=== PATIENT | female | born 1955 | race Caucasian/White ===

== ENCOUNTER 2019-11-19 11:14 | Observation (INO) ==
[2019-11-19] MEDS ORDERED: *HR* FentaNYL (PF) 100 MCG/2 ML VIAL IVP ONE (11:38)
[2019-11-19 12:09] LABS: Basophils # 0.1 K/mcL (0.0-0.2); Basophils % 0.7 %; Eosinophils # 0.2 K/mcL (0.0-0.6); Eosinophils % 2.2 %; Hematocrit 39.8 % (35.3-44.9); Hemoglobin 12.5 g/dL (11.5-15.4); Immature Granulocytes % 0.7 % (0-4); Lymphocytes # 1.5 K/mcL (0.6-4.6); Lymphocytes % 15.9 %; Mean Corpuscular HGB Conc 31.4 g/dL (31.6-35.5); Mean Corpuscular Hemoglobin 29.7 pg (28.0-33.3); Mean Corpuscular Volume 94.5 fL (83.0-100.0); Mean Platelet Volume 9.9 fL (9.4-12.4); Monocytes % 10.4 %; Neutrophils # 6.6 K/mcL (1.6-8.9); Platelet Count 315 K/mcL (140-400); Red Blood Count 4.21 M/mcL (3.82-4.97); Segmented Neutrophils % 70.1 %; White Blood Count 9.4 K/mcL (4.3-11.1)
[2019-11-19 12:16] LABS: INR 1.1
[2019-11-19 12:30] LABS: BUN/Creatinine Ratio 22 (6-26); Blood Urea Nitrogen 17 mg/dL (8-23); Carbon Dioxide 26 mEq/L (23-29); Chloride 103 mEq/L (98-107); Glucose 102 mg/dL (70-105); Osmolality,Calculated 286 (280-300); Potassium 3.8 mEq/L (3.5-5.1); Sodium 137 mEq/L (136-145); eGFR For African Americans > 60 (> 60); eGFR For Non-African Americans > 60 (> 60)
[2019-11-19 12:31] LABS: Troponin I < 0.03 ng/mL (< 0.04)
[2019-11-19] MEDS ORDERED: hydrOXYzine pamoate 25 MG CAPSULE PO PRN (13:36)
[2019-11-19] MEDS ORDERED: Naloxone 0.4 MG/ML INJ IVP PRN (13:38)
[2019-11-19] MEDS ORDERED: clonazePAM 0.5 MG TABLET PO SCH ×2 (13:45→21:00)
[2019-11-19 14:32] LABS: Thyroid Stimulating Hormone 2.211 mcIU/mL (0.340-5.600)
[2019-11-19] MEDS ORDERED: Ipratropium/Albuterol Neb 3 ML IH ONE (14:37)
[2019-11-19] MEDS ORDERED: Ipratropium/Albuterol Neb 3 ML IH PRN (14:37)
[2019-11-19] MEDS ORDERED: *HR* Labetalol 20 MG/4 ML SYRINGE IVP PRN (14:38)
[2019-11-19] MEDS ORDERED: *HR* HYDROcodone/Acet 5/325 mg TABLET PO PRN (14:53)
[2019-11-19 16:23] LABS: Albumin 3.6 g/dL (3.5-5.7); Albumin/Globulin Ratio 2.3 (1.1-2.2); Bilirubin,Direct 0.1 mg/dL (0.0-0.2); Bilirubin,Indirect 0.3 mg/dL (0.0-1.0); Bilirubin,Total 0.4 mg/dL (0.3-1.0); Globulin 1.6 g/dL (2.4-3.5); Total Protein 5.2 g/dL (6.4-8.9)
[2019-11-19] MEDS: *HR* Heparin 5,000 UNIT/ML VIAL SQ SCH (17:39)
[2019-11-19] MEDS ORDERED: rOPINIRole 1 MG TABLET PO SCH (21:00)
[2019-11-19] MEDS: carvediloL 25 MG TABLET PO SCH (21:56)
[2019-11-19] MEDS: *HR* OxyCODONE Immed Rel 5 MG TABLET PO PRN (21:56)
[2019-11-20] MEDS ORDERED: *HR* LORazepam 2 MG/ML VIAL IVP ONE ×3 (04:23→10:01)
[2019-11-20] MEDS: *HR* Heparin 5,000 UNIT/ML VIAL SQ SCH (05:25)
[2019-11-20 07:33] VITALS: BP 156/89
[2019-11-20] MEDS: carvediloL 25 MG TABLET PO SCH (08:41)
[2019-11-20] MEDS: *HR* OxyCODONE Immed Rel 5 MG TABLET PO PRN (08:43)
[2019-11-20] MEDS ORDERED: lisinopriL 10 MG TABLET PO SCH (09:00)
[2019-11-20] MEDS ORDERED: lamoTRIgine 100 MG TABLET PO SCH (09:00)
== END 2019-11-20 12:00 | disposition home or self-care (01) ==
LOC: 3NENU 11:14 → EMEROOARM 11:14 → 3NENU 15:09
PROVIDERS: ADMIT Student in an Organized Health Care Education/Training Program; ATTEND Student in an Organized Health Care Education/Training Program

== ENCOUNTER 2019-12-25 12:31 | Observation (INO) ==
[2019-12-25] MEDS ORDERED: Vancomycin 1,500 MG/265 ML IV.SOLN IVPB ONE (13:18)
[2019-12-25 13:52] LABS: Hematocrit 37.7 % (35.3-44.9); Hemoglobin 11.5 g/dL (11.5-15.4); Mean Corpuscular HGB Conc 30.5 g/dL (31.6-35.5); Mean Corpuscular Hemoglobin 28.8 pg (28.0-33.3); Mean Corpuscular Volume 94.3 fL (83.0-100.0); Mean Platelet Volume 8.9 fL (9.4-12.4); Platelet Count 284 K/mcL (140-400); Red Cell Distribution Width 14.5 % (11.5-14.5); White Blood Count 8.2 K/mcL (4.3-11.1)
[2019-12-25 14:09] LABS: BUN/Creatinine Ratio 23 (6-26); Blood Urea Nitrogen 19 mg/dL (8-23); Calcium 8.9 mg/dL (8.6-10.3); Carbon Dioxide 30 mEq/L (23-29); Chloride 103 mEq/L (98-107); Glucose 98 mg/dL (70-105); Osmolality,Calculated 288 (280-300); Potassium 3.6 mEq/L (3.5-5.1); Sodium 138 mEq/L (136-145); eGFR For African Americans > 60 (> 60); eGFR For Non-African Americans > 60 (> 60)
[2019-12-25] MEDS ORDERED: Furosemide 40 MG/4 ML VIAL IVP ONE (16:05)
[2019-12-25] MEDS ORDERED: clonazePAM 0.5 MG TABLET PO PRN (16:08)
[2019-12-25] MEDS ORDERED: *HR* Acetaminophen w/Cod 300-30 mg 1 TAB TABLET PO PRN (16:08)
[2019-12-25] MEDS: carvediloL 25 MG TABLET PO SCH (18:27)
[2019-12-25] MEDS ORDERED: rOPINIRole 1 MG TABLET PO SCH (21:00)
[2019-12-25] MEDS: *HR* Heparin 5,000 UNIT/ML VIAL SQ SCH (21:16)
[2019-12-25] MEDS: hydrOXYzine pamoate 25 MG CAPSULE PO PRN (23:52)
[2019-12-26] MEDS: *HR* Heparin 5,000 UNIT/ML VIAL SQ SCH (02:30)
[2019-12-26] MEDS ORDERED: Vancomycin 1,500 MG/265 ML IV.SOLN IVPB SCH (03:00)
[2019-12-26 04:30] LABS: Basophils # 0.1 K/mcL (0.0-0.2); Basophils % 0.7 %; Eosinophils # 0.2 K/mcL (0.0-0.6); Eosinophils % 2.8 %; Hematocrit 34.8 % (35.3-44.9); Hemoglobin 10.7 g/dL (11.5-15.4); Immature Granulocytes % 0.6 % (0-4); Lymphocytes # 1.2 K/mcL (0.6-4.6); Mean Corpuscular HGB Conc 30.7 g/dL (31.6-35.5); Mean Corpuscular Hemoglobin 28.9 pg (28.0-33.3); Mean Corpuscular Volume 94.1 fL (83.0-100.0); Mean Platelet Volume 9.3 fL (9.4-12.4); Monocytes # 0.9 K/mcL (0.0-1.3); Neutrophils # 4.9 K/mcL (1.6-8.9); Platelet Count 260 K/mcL (140-400); Red Cell Distribution Width 14.6 % (11.5-14.5); Segmented Neutrophils % 66.9 %; White Blood Count 7.2 K/mcL (4.3-11.1)
[2019-12-26 04:38] LABS: BUN/Creatinine Ratio 24 (6-26); Blood Urea Nitrogen 18 mg/dL (8-23); C-Reactive Protein 6 mg/L (Less than 10); Calcium 8.2 mg/dL (8.6-10.3); Carbon Dioxide 30 mEq/L (23-29); Chloride 105 mEq/L (98-107); Glucose 121 mg/dL (70-105); Osmolality,Calculated 293 (280-300); Potassium 3.7 mEq/L (3.5-5.1); Sodium 140 mEq/L (136-145); eGFR For African Americans > 60 (> 60); eGFR For Non-African Americans > 60 (> 60)
[2019-12-26] MEDS ORDERED: Ferrous Sulfate Oral Soln 300 MG/5 ML UDC PO SCH (08:00)
[2019-12-26 08:29] VITALS: BP 139/84
[2019-12-26] MEDS ORDERED: lamoTRIgine 100 MG TABLET PO SCH (09:00)
[2019-12-26] MEDS ORDERED: lisinopriL 10 MG TABLET PO SCH (09:00)
[2019-12-26] MEDS: carvediloL 25 MG TABLET PO SCH (09:38)
[2019-12-26] MEDS ORDERED: Furosemide 20 MG/2 ML VIAL IVP ONE (09:48)
[2019-12-26] MEDS: hydrOXYzine pamoate 25 MG CAPSULE PO PRN (10:23)
[2019-12-26] MEDS ORDERED: Aminoglycoside Consult 1 EACH MC ONE (15:14)
== END 2019-12-26 15:15 | disposition home or self-care (01) ==
LOC: SUATTDRO → 3BNU 12:31 → EMEROOARM 12:31 → SUATTDRO 16:22 → 3BNU 17:08
PROVIDERS: ADMIT Internal Medicine; ATTEND Internal Medicine

== ENCOUNTER 2021-07-16 18:35 | Inpatient (IN) ==
[2021-07-16 19:20] LABS: Basophils % 0.2 %; Eosinophils # 0.1 K/mcL (0.0-0.6); Eosinophils % 1.5 %; Hematocrit 33.9 % (35.3-44.9); Hemoglobin 10.8 g/dL (11.5-15.4); Immature Granulocytes % 0.9 % (0-4); Lymphocytes # 0.5 K/mcL (0.6-4.6); Lymphocytes % 5.7 %; Mean Corpuscular HGB Conc 31.9 g/dL (31.6-35.5); Mean Corpuscular Hemoglobin 28.9 pg (28.0-33.3); Mean Corpuscular Volume 90.6 fL (83.0-100.0); Mean Platelet Volume 9.3 fL (9.4-12.4); Monocytes # 0.7 K/mcL (0.0-1.3); Monocytes % 8.3 %; Platelet Count 321 K/mcL (140-400); Red Blood Count 3.74 M/mcL (3.82-4.97); Red Cell Distribution Width 14.1 % (11.5-14.5); Segmented Neutrophils % 83.4 %; White Blood Count 8.5 K/mcL (4.3-11.1)
[2021-07-16 19:29] LABS: INR 1.2; Prothrombin Time 13.3 Seconds (9.4-12.1)
[2021-07-16 19:32] LABS: Activated Partial Thrombo Time 26.4 Seconds (26.0-36.0)
[2021-07-16 19:43] LABS: BUN/Creatinine Ratio 21 (6-26); Blood Urea Nitrogen 19 mg/dL (8-23); Calcium 8.4 mg/dL (8.6-10.3); Carbon Dioxide 23 mEq/L (23-29); Chloride 105 mEq/L (98-107); Glucose 109 mg/dL (70-105); Osmolality,Calculated 285 (280-300); Potassium 4.1 mEq/L (3.5-5.1); Sodium 136 mEq/L (136-145); Troponin I < 0.03 ng/mL (< 0.04); eGFR For African Americans > 60 (> 60); eGFR For Non-African Americans > 60 (> 60)
[2021-07-16 20:13] LABS: Bilirubin,Urine Negative (Negative); Blood,Urine Negative (Negative); Clarity,Urine Clear (Clear); Color,Urine Light-Yellow (Yellow); Glucose,Urine (UA) Normal (Normal); Ketones,Urine Negative (Negative); Leukocyte Esterase,Urine Negative (Negative); Nitrite,Urine Negative (Negative); PH,Urine 7.5 pH Units (5.0-8.0); Protein,Urine Trace mg/dL (Neg-Trace); Specific Gravity,Urine 1.018 (1.010-1.025); Urobilinogen,Urine Normal (Normal)
[2021-07-16] MEDS ORDERED: Naloxone 0.4 MG/ML INJ IVP PRN (22:09)
[2021-07-16 22:56] LABS: Alanine Aminotransferase 11 Units/L (7-52); Albumin 3.2 g/dL (3.5-5.7); Albumin/Globulin Ratio 1.4 (1.1-2.2); Alkaline Phosphatase 110 Units/L (34-104); Aspartate Amino Transferase 13 Units/L (13-39); Bilirubin,Direct 0.1 mg/dL (0.0-0.2); Bilirubin,Indirect 0.5 mg/dL (0.0-1.0); Bilirubin,Total 0.6 mg/dL (0.3-1.0); C-Reactive Protein 62 mg/L (Less than 10); Globulin 2.3 g/dL (2.4-3.5); Total Protein 5.5 g/dL (6.4-8.9)
[2021-07-17 01:49] LABS: Adenovirus Not Detected (Not Detect); Coronavirus 229E Not Detected (Not Detect); Coronavirus HKU1 Not Detected (Not Detect); Coronavirus NL63 Not Detected (Not Detect); Coronavirus OC43 Not Detected (Not Detect)
[2021-07-17 01:50] LABS: Bordetella Pertussis Not Detected (Not Detect); Chlamydophila pneumoniae Not Detected (Not Detect); Human Metapneumovirus Not Detected (Not Detect); Human Rhinovirus/Enterovirus Not Detected (Not Detect); Influenza A Subtype 2009 H1 Not Detected (Not Detect); Influenza B Not Detected (Not Detect); Mycoplasma pneumoniae Not Detected (Not Detect); Parainfluenza Virus 1 Not Detected (Not Detect); Parainfluenza Virus 2 Not Detected (Not Detect); Parainfluenza Virus 3 Not Detected (Not Detect); Parainfluenza Virus 4 Not Detected (Not Detect); Respiratory Syncytial Virus Not Detected (Not Detect); SARS-CoV-2 DETECTED (Not Detect)
[2021-07-17] MEDS: Melatonin 3 MG TABLET PO PRN (02:29)
[2021-07-17 02:30] LABS: Hematocrit 34.4 % (35.3-44.9); Hemoglobin 10.8 g/dL (11.5-15.4); Mean Corpuscular HGB Conc 31.4 g/dL (31.6-35.5); Mean Corpuscular Hemoglobin 28.8 pg (28.0-33.3); Mean Corpuscular Volume 91.7 fL (83.0-100.0); Mean Platelet Volume 9.5 fL (9.4-12.4); Platelet Count 331 K/mcL (140-400); Red Blood Count 3.75 M/mcL (3.82-4.97); Red Cell Distribution Width 14.2 % (11.5-14.5); White Blood Count 9.6 K/mcL (4.3-11.1)
[2021-07-17] MEDS: rOPINIRole 1 MG TABLET PO SCH ×2 (02:36→20:15)
[2021-07-17] MEDS: Furosemide 20 MG/2 ML VIAL IVP SCH ×2 (02:37→09:24)
[2021-07-17 02:46] LABS: BUN/Creatinine Ratio 26 (6-26); Blood Urea Nitrogen 18 mg/dL (8-23); Calcium 8.2 mg/dL (8.6-10.3); Carbon Dioxide 24 mEq/L (23-29); Chloride 106 mEq/L (98-107); Glucose 167 mg/dL (70-105); Magnesium 1.8 mg/dL (1.6-2.6); Osmolality,Calculated 288 (280-300); Phosphorous 2.6 mg/dL (2.7-4.5); Potassium 3.9 mEq/L (3.5-5.1); Sodium 136 mEq/L (136-145); eGFR For African Americans > 60 (> 60); eGFR For Non-African Americans > 60 (> 60)
[2021-07-17] MEDS ORDERED: Furosemide 20 MG/2 ML VIAL IVP ONE (02:57)
[2021-07-17] MEDS ORDERED: Remdesivir 200 MG in 0.9 % Sodium Chloride 100 ML IVPB ONE (05:00)
[2021-07-17] MEDS: *HR* Enoxaparin 40 MG/0.4 ML SYRINGE SQ SCH (06:16)
[2021-07-17] MEDS: lamoTRIgine 100 MG TABLET PO SCH ×2 (09:24→20:15)
[2021-07-17] MEDS: Benzonatate 100 MG CAPSULE PO PRN ×2 (09:24→20:30)
[2021-07-17] MEDS ORDERED: tiZANidine 4 MG TABLET PO PRN (12:16)
[2021-07-17] MEDS: Ipratropium 1 PUFF INHALER IH SCH ×4 (15:25→23:28)
[2021-07-17] MEDS: carvediloL 25 MG TABLET PO SCH (16:50)
[2021-07-17] MEDS: hydrOXYzine pamoate 25 MG CAPSULE PO PRN (20:15)
[2021-07-17] MEDS ORDERED: ROPINIROLE HCL 2 MG PO SCH (21:00)
[2021-07-18] MEDS: Menthol 1 EACH LOZENGE PO PRN ×2 (00:52→20:52)
[2021-07-18] MEDS: Ipratropium 1 PUFF INHALER IH SCH ×7 (03:42→23:34)
[2021-07-18 04:05] LABS: Basophils % 0.1 %; Hematocrit 31.2 % (35.3-44.9); Hemoglobin 9.9 g/dL (11.5-15.4); Immature Granulocytes % 0.9 % (0-4); Lymphocytes # 0.4 K/mcL (0.6-4.6); Lymphocytes % 4.5 %; Mean Corpuscular HGB Conc 31.7 g/dL (31.6-35.5); Mean Corpuscular Hemoglobin 29.2 pg (28.0-33.3); Mean Platelet Volume 9.5 fL (9.4-12.4); Monocytes # 0.8 K/mcL (0.0-1.3); Monocytes % 9.6 %; Neutrophils # 6.6 K/mcL (1.6-8.9); Platelet Count 366 K/mcL (140-400); Red Blood Count 3.39 M/mcL (3.82-4.97); Red Cell Distribution Width 14.1 % (11.5-14.5); Segmented Neutrophils % 84.9 %; White Blood Count 7.8 K/mcL (4.3-11.1)
[2021-07-18 04:17] LABS: D-Dimer 1820 ng/mLFEU (0-500)
[2021-07-18 04:22] LABS: Albumin 2.9 g/dL (3.5-5.7); Albumin/Globulin Ratio 1.4 (1.1-2.2); Bilirubin,Direct 0.2 mg/dL (0.0-0.2); Bilirubin,Indirect 0.3 mg/dL (0.0-1.0); Bilirubin,Total 0.5 mg/dL (0.3-1.0); Globulin 2.1 g/dL (2.4-3.5)
[2021-07-18 04:23] LABS: Fibrinogen 367 mg/dL (169-393)
[2021-07-18 04:28] LABS: BUN/Creatinine Ratio 41 (6-26); Blood Urea Nitrogen 24 mg/dL (8-23); C-Reactive Protein 58 mg/L (Less than 10); Calcium 8.2 mg/dL (8.6-10.3); Carbon Dioxide 25 mEq/L (23-29); Chloride 103 mEq/L (98-107); Glucose 136 mg/dL (70-105); Lactate Dehydrogenase 206 Units/L (140-271); Osmolality,Calculated 290 (280-300); Potassium 3.6 mEq/L (3.5-5.1); Sodium 137 mEq/L (136-145); eGFR For African Americans > 60 (> 60); eGFR For Non-African Americans > 60 (> 60)
[2021-07-18 04:39] LABS: Ferritin 246 ng/mL (10-120)
[2021-07-18] MEDS: Remdesivir 100 MG in 0.9 % Sodium Chloride 100 ML IVPB SCH (05:15)
[2021-07-18] MEDS: *HR* Enoxaparin 40 MG/0.4 ML SYRINGE SQ SCH (05:16)
[2021-07-18] MEDS: carvediloL 25 MG TABLET PO SCH ×2 (09:01→15:41)
[2021-07-18] MEDS: lamoTRIgine 100 MG TABLET PO SCH ×2 (09:01→20:43)
[2021-07-18] MEDS: FLUoxetine 20 MG CAPSULE PO SCH (09:01)
[2021-07-18] MEDS: Cholecalciferol (D-3) 1,000 UNIT (25MCG) TABLET PO SCH (09:02)
[2021-07-18] MEDS: lisinopriL 10 MG TABLET PO SCH (09:02)
[2021-07-18] MEDS: Furosemide 20 MG/2 ML VIAL IVP SCH (09:03)
[2021-07-18] MEDS: Benzonatate 100 MG CAPSULE PO PRN (19:34)
[2021-07-18] MEDS: Melatonin 3 MG TABLET PO PRN (20:43)
[2021-07-18] MEDS: rOPINIRole 1 MG TABLET PO SCH (20:43)
[2021-07-18] MEDS ORDERED: polyethylene glycoL 3350 17 GM POWD.PACK PO PRN (20:57)
[2021-07-18] MEDS: Magic Mouthwash 10 ML UD Cup PO SCH (22:29)
[2021-07-19] MEDS: Ipratropium 1 PUFF INHALER IH SCH ×6 (03:59→23:56)
[2021-07-19] MEDS: Benzonatate 100 MG CAPSULE PO PRN ×3 (04:34→21:54)
[2021-07-19] MEDS: Remdesivir 100 MG in 0.9 % Sodium Chloride 100 ML IVPB SCH (04:35)
[2021-07-19 06:37] LABS: Basophils % 0.1 %; Hematocrit 33.2 % (35.3-44.9); Hemoglobin 10.2 g/dL (11.5-15.4); Immature Granulocytes % 0.9 % (0-4); Lymphocytes # 0.5 K/mcL (0.6-4.6); Lymphocytes % 5.3 %; Mean Corpuscular HGB Conc 30.7 g/dL (31.6-35.5); Mean Corpuscular Hemoglobin 28.7 pg (28.0-33.3); Mean Corpuscular Volume 93.3 fL (83.0-100.0); Mean Platelet Volume 9.5 fL (9.4-12.4); Monocytes % 10.5 %; Neutrophils # 8.2 K/mcL (1.6-8.9); Platelet Count 383 K/mcL (140-400); Red Blood Count 3.56 M/mcL (3.82-4.97); Red Cell Distribution Width 14.1 % (11.5-14.5); Segmented Neutrophils % 83.2 %; White Blood Count 9.8 K/mcL (4.3-11.1)
[2021-07-19] MEDS: *HR* Enoxaparin 40 MG/0.4 ML SYRINGE SQ SCH (06:50)
[2021-07-19 07:04] LABS: BUN/Creatinine Ratio 49 (6-26); Blood Urea Nitrogen 30 mg/dL (8-23); Calcium 8.2 mg/dL (8.6-10.3); Carbon Dioxide 27 mEq/L (23-29); Chloride 103 mEq/L (98-107); Glucose 108 mg/dL (70-105); Osmolality,Calculated 291 (280-300); Potassium 3.7 mEq/L (3.5-5.1); Sodium 137 mEq/L (136-145); eGFR For African Americans > 60 (> 60); eGFR For Non-African Americans > 60 (> 60)
[2021-07-19 07:05] LABS: Albumin 2.9 g/dL (3.5-5.7); Albumin/Globulin Ratio 1.5 (1.1-2.2); Bilirubin,Direct 0.2 mg/dL (0.0-0.2); Bilirubin,Indirect 0.3 mg/dL (0.0-1.0); Bilirubin,Total 0.5 mg/dL (0.3-1.0); Total Protein 4.9 g/dL (6.4-8.9)
[2021-07-19] MEDS: FLUoxetine 20 MG CAPSULE PO SCH (08:28)
[2021-07-19] MEDS: carvediloL 25 MG TABLET PO SCH ×2 (08:29→16:17)
[2021-07-19] MEDS: lisinopriL 10 MG TABLET PO SCH (08:29)
[2021-07-19] MEDS: Cholecalciferol (D-3) 1,000 UNIT (25MCG) TABLET PO SCH (08:29)
[2021-07-19] MEDS: lamoTRIgine 100 MG TABLET PO SCH ×2 (08:29→21:53)
[2021-07-19] MEDS: Furosemide 20 MG/2 ML VIAL IVP SCH (09:15)
[2021-07-19] MEDS: Magic Mouthwash 10 ML UD Cup PO SCH ×3 (09:19→16:18)
[2021-07-19] MEDS: rOPINIRole 1 MG TABLET PO SCH (21:52)
[2021-07-19] MEDS: hydrOXYzine pamoate 25 MG CAPSULE PO PRN (21:53)
[2021-07-20] MEDS: Ipratropium 1 PUFF INHALER IH SCH ×4 (04:05→16:15)
[2021-07-20] MEDS: Remdesivir 100 MG in 0.9 % Sodium Chloride 100 ML IVPB SCH (05:37)
[2021-07-20] MEDS: hydrOXYzine pamoate 25 MG CAPSULE PO PRN (05:38)
[2021-07-20] MEDS: *HR* Enoxaparin 40 MG/0.4 ML SYRINGE SQ SCH (06:03)
[2021-07-20 07:42] VITALS: TEMP 97.9
[2021-07-20 08:12] LABS: Basophils % 0.2 %; Eosinophils % 0.2 %; Hematocrit 33.5 % (35.3-44.9); Hemoglobin 10.6 g/dL (11.5-15.4); Immature Granulocytes % 1.6 % (0-4); Lymphocytes # 0.6 K/mcL (0.6-4.6); Lymphocytes % 4.6 %; Mean Corpuscular HGB Conc 31.6 g/dL (31.6-35.5); Mean Corpuscular Volume 91.8 fL (83.0-100.0); Mean Platelet Volume 9.7 fL (9.4-12.4); Monocytes # 1.4 K/mcL (0.0-1.3); Monocytes % 11.7 %; Platelet Count 392 K/mcL (140-400); Red Blood Count 3.65 M/mcL (3.82-4.97); Red Cell Distribution Width 14.1 % (11.5-14.5); Segmented Neutrophils % 81.7 %; White Blood Count 12.2 K/mcL (4.3-11.1)
[2021-07-20] MEDS: Menthol 1 EACH LOZENGE PO PRN (09:16)
[2021-07-20] MEDS: lamoTRIgine 100 MG TABLET PO SCH (09:19)
[2021-07-20] MEDS: lisinopriL 10 MG TABLET PO SCH (09:19)
[2021-07-20] MEDS: Cholecalciferol (D-3) 1,000 UNIT (25MCG) TABLET PO SCH (09:19)
[2021-07-20] MEDS: carvediloL 25 MG TABLET PO SCH (09:19)
[2021-07-20] MEDS: Furosemide 20 MG/2 ML VIAL IVP SCH (09:19)
[2021-07-20] MEDS: FLUoxetine 20 MG CAPSULE PO SCH (09:19)
[2021-07-20] MEDS: Magic Mouthwash 10 ML UD Cup PO SCH ×2 (09:36→11:49)
[2021-07-20 10:41] LABS: Alanine Aminotransferase 12 Units/L (7-52); Albumin 2.9 g/dL (3.5-5.7); Albumin/Globulin Ratio 1.5 (1.1-2.2); Alkaline Phosphatase 92 Units/L (34-104); Aspartate Amino Transferase 16 Units/L (13-39); BUN/Creatinine Ratio 36 (6-26); Bilirubin,Direct 0.2 mg/dL (0.0-0.2); Bilirubin,Indirect 0.3 mg/dL (0.0-1.0); Bilirubin,Total 0.5 mg/dL (0.3-1.0); Blood Urea Nitrogen 21 mg/dL (8-23); Calcium 8.4 mg/dL (8.6-10.3); Carbon Dioxide 29 mEq/L (23-29); Chloride 102 mEq/L (98-107); Globulin 1.9 g/dL (2.4-3.5); Glucose 105 mg/dL (70-105); Lactate Dehydrogenase 211 Units/L (140-271); Osmolality,Calculated 287 (280-300); Potassium 3.6 mEq/L (3.5-5.1); Sodium 137 mEq/L (136-145); Total Protein 4.8 g/dL (6.4-8.9); eGFR For African Americans > 60 (> 60); eGFR For Non-African Americans > 60 (> 60)
[2021-07-20 10:51] LABS: Ferritin 246 ng/mL (10-120)
[2021-07-20 11:07] LABS: Fibrinogen 304 mg/dL (169-393)
[2021-07-20 11:20] LABS: D-Dimer 2152 ng/mLFEU (0-500)
[2021-07-20 11:35] VITALS: BP 122/63; PULSE 63
[2021-07-20] MEDS: Benzonatate 100 MG CAPSULE PO PRN (12:08)
[2021-07-20 12:44] LABS: C-Reactive Protein 22 mg/L (Less than 10)
[2021-07-20 15:27] LABS: Bilirubin,Urine Negative (Negative); Blood,Urine Negative (Negative); Clarity,Urine Clear (Clear); Color,Urine Colorless (Yellow); Glucose,Urine (UA) Normal (Normal); Ketones,Urine Negative (Negative); Leukocyte Esterase,Urine Negative (Negative); Nitrite,Urine Negative (Negative); Protein,Urine Negative (Neg-Trace); Specific Gravity,Urine 1.008 (1.010-1.025); Urobilinogen,Urine Normal (Normal)
[2021-07-20 17:33] VITALS: O2SAT 92
== END 2021-07-20 19:23 | disposition home or self-care (01) | DRG 177 ==
LOC: EMEROOARM 18:35 → 3BNU 18:35 → SUATTDRO 22:34 → 3BNU 23:46 → SUATTDRO 07-17 12:17
PROVIDERS: ADMIT Internal Medicine; ATTEND Internal Medicine